=== PATIENT | female | born 1975 | race Two or more races ===

== ENCOUNTER 2016-07-21 16:09 | Emergency (ER) | payer OTHER ==
[~2016-07-21] VITALS: Ht 170.2 cm; Wt 117.9 kg
[2016-07-21 16:20] VITALS: BP 161/97
[2016-07-21 16:47] LABS: APPEARANCE,URINE CLEAR; KETONES,URINE NEGATIVE (NEGATIVE); LEUKOCYTE ESTERASE ,URINE 1+ (NEGATIVE); NITRITE,URINE NEGATIVE (NEGATIVE); PH,URINE 6.5 (4.5-8.0); PROTEIN,URINE NEGATIVE (NEGATIVE); UROBILINOGEN,URINE NORMAL MG/DL (0.0-1.0)
[2016-07-21 16:59] LABS: RBC,URINE 0-2 /HPF (0 - 2); SQUAMOUS EPITHELIAL CELL,UR FEW /LPF (NONE/OCC)
[2016-07-21 17:15] LABS: BASOPHILS % (AUTO) 1.5 % (0.0-2.0); LYMPHOCYTES % (AUTO) 24.4 % (20.0-45.0); MEAN CORPUSCULAR HGB CONC 33.5 G/DL (32.0-36.0); MEAN CORPUSCULAR VOLUME 92 FL (80-99); MEAN PLATELET VOLUME 7.9 FL (6.5-10.1); MONOCYTES % (AUTO) 6.1 % (1.0-10.0); NEUTROPHILS % (AUTO) 67.1 % (45.0-75.0); PLATELET COUNT 313 K/UL (150-450); RED CELL DISTRIBUTION WIDTH 11.5 % (11.6-14.8); WHITE BLOOD COUNT 11.1 K/UL (4.8-10.8)
[2016-07-21 17:38] LABS: ALANINE AMINOTRANSFERASE 18 U/L (3-33); ALBUMIN/GLOBULIN RATIO 1.2 (1.0-2.7); ANION GAP 13 (5-15); ASPARTATE AMINO TRANSFERASE 15 U/L (5-40); CALCIUM 9.1 mg/dL (8.6-10.2); CARBON DIOXIDE 26 mEQ/L (20-30); CHLORIDE 98 mEQ/L (98-107); CREATININE 0.7 mg/dL (0.5-0.9); GLOMERULAR FILTRATION RATE > 60 mL/min (>60); HEMOLYSIS 4; POTASSIUM 3.5 mEQ/L (3.4-4.9); SODIUM 137 mEQ/L (135-145); TOTAL PROTEIN 7.4 g/dL (6.6-8.7)
[2016-07-21] MEDS ORDERED: DEBROX15 M1 LEFT EAR (19:41)
[2016-07-21 20:02] VITALS: BP 114/74
[2016-07-21 20:06] VITALS: BP 114/74
--- NOTE | 2016-07-21 22:16 | Emergency Room Report ---
History of Present Illness General Chief Complaint: Generalized Weakness Source: Medical Record Present Illness HPI The patient is a 41-year-old female who denies medical history presenting for fullness of the left ear along with dizziness which began today. The patient states that she was seated at her desk and felt the symptoms which are intermittent. The pt denies any other symptoms including N, V, F, chills, cough , abd pain, JONES, blurred vision, neck pain/stiffness, SOB, CP Allergies: Coded Allergies: NAPROXEN (Verified Allergy, Intermediate, 07/21/16) cap bleeding Patient History Past Medical History: see triage record Pertinent Family History: none Last Menstrual Period: 07/07/16 Now: No : 3 Para: 3 Reviewed Nursing Documentation: PMH: Agreed, PSxH: Agreed Nursing Documentation-PMH Past Medical History: No Stated History Review of Systems All Other Systems: negative except mentioned in HPI Physical Exam Vital Signs Date Time Temp Pulse Resp B/P Pulse Ox O2 Delivery O2 Flow Rate FiO2 07/21/16 16:15 98.2 73 18 161/97 100 Room Air Sp02 EP Interpretation: reviewed, normal General Appearance: no apparent distress, alert, GCS 15, non-toxic Head: normocephalic, atraumatic Eyes: bilateral eye PERRL, bilateral eye normal inspection ENT: hearing grossly normal, normal pharynx, no angioedema, normal voice, other - L ear cerumen impaction Neck: full range of motion, supple/symm/no masses Respiratory: chest non-tender, lungs clear, normal breath sounds, no wheezing, speaking full sentences Cardiovascular #1: no edema, no gallop, no JVD, no murmur, no rub, bradycardia Cardiovascular #2: 2+ carotid (R), 2+ carotid (L), 2+ radial (R), 2+ radial (L) , 2+ dorsalis pedis (R), 2+ dorsalis pedis (L) Gastrointestinal: normal bowel sounds, non tender, soft, no mass, non-distended , no guarding, no rebound Rectal: deferred Genitourinary: normal inspection, no CVA tenderness Musculoskeletal: back normal, gait/station normal, normal range of motion, non- tender, calf tenderness Neurologic: alert, oriented x3, responsive, motor strength/tone normal, sensory intact, normal gait, speech normal Psychiatric: judgement/insight normal, memory normal, mood/affect normal, no suicidal/homicidal ideation Skin: normal color, no rash, warm/dry, well hydrated Lymphatic: no adenopathy Medical Decision Making PA Attestation Dr. Galicia is my supervising physician. Patient management was discussed with my supervising physician Diagnostic Impression: Primary Impression: Dizziness Additional Impression: Impacted cerumen, left ear ER Course The patient is a 41-year-old female who denies medical history presenting for fullness of the left ear along with dizziness which began today. Differential diagnosis considered: Otitis media, Mnire's disease, labyrinthitis, dehydration, hypoglycemia, anxiety Physical exam: The patient is initially hypertensive but is normotensive at time of discharge. Bradycardic. CN II-XII intact PERRL. EOMI. Normal mentation. RRR. No MRG Lungs CTA bilat HEENT: There is cerumen impaction of the left ear. Unable to visualize TM Abdomen: Normal appearance. Non distended. No ecchymosis. Normal BS. Non TTP. No McBurney point tenderness. No guarding. Skin is warm and dry, no rashes. CBC, CMP, UA all unremarkable The patient is given IV fluids and states that she is feeling better. The patient will be discharged with a prescription for the proximal and will followup with primary care physician for further evaluation. ER precautions given Laboratory Tests Test 07/21/16 16:30 07/21/16 16:50 Urine Color Pale yellow Urine Appearance Clear Urine pH 6.5 (4.5-8.0) Urine Specific [place] 1.010 (1.005-1.035) Urine Protein Negative (NEGATIVE) Urine Glucose (UA) Negative (NEGATIVE) Urine Ketones Negative (NEGATIVE) Urine Occult Blood Negative (NEGATIVE) Urine Nitrite Negative (NEGATIVE) Urine Bilirubin Negative (NEGATIVE) Urine Urobilinogen Normal MG/DL (0.0-1.0) Urine Leukocyte Esterase 1+ (NEGATIVE) H Urine RBC 0-2 /HPF (0 - 2) Urine WBC 2-4 /HPF (0 - 2) Urine Squamous Epithelial Cells Few /LPF (NONE/OCC) Urine Bacteria None /HPF (NONE) Urine HCG, Qualitative Negative White Blood Count 11.1 K/UL (4.8-10.8) H Red Blood Count 4.40 M/UL (4.20-5.40) Hemoglobin 13.6 G/DL (12.0-16.0) Hematocrit 40.7 % (37.0-47.0) Mean Corpuscular Volume 92 FL (80-99) Mean Corpuscular Hemoglobin 31.0 PG (27.0-31.0) Mean Corpuscular Hemoglobin Concent 33.5 G/DL (32.0-36.0) Red Cell Distribution Width 11.5 % (11.6-14.8) L Platelet Count 313 K/UL (150-450) Mean Platelet Volume 7.9 FL (6.5-10.1) Neutrophils (%) (Auto) 67.1 % (45.0-75.0) Lymphocytes (%) (Auto) 24.4 % (20.0-45.0) Monocytes (%) (Auto) 6.1 % (1.0-10.0) Eosinophils (%) (Auto) 1.0 % (0.0-3.0) Basophils (%) (Auto) 1.5 % (0.0-2.0) Sodium Level 137 mEQ/L (135-145) Potassium Level 3.5 mEQ/L (3.4-4.9) Chloride Level 98 mEQ/L (98-107) Carbon Dioxide Level 26 mEQ/L (20-30) Anion Gap 13 (5-15) Blood Urea Nitrogen 9 mg/dL (7-23) Creatinine 0.7 mg/dL (0.5-0.9) Estimate Glomerular Filtration Rate > 60 mL/min (>60) Glucose Level 112 mg/dL (74-106) H Calcium Level 9.1 mg/dL (8.6-10.2) Total Bilirubin 0.2 mg/dL (0.0-1.2) Aspartate Amino Transferase (AST) 15 U/L (5-40) Alanine Aminotransferase (ALT) 18 U/L (3-33) Alkaline Phosphatase 66 U/L (35-104) Total Protein 7.4 g/dL (6.6-8.7) Albumin 4.1 g/dL (3.5-5.2) Globulin 3.3 g/dL Albumin/Globulin Ratio 1.2 (1.0-2.7) Lab Results Impression CBC, CMP, UA all unremarkable EKG Diagnostic Results Rate: bradycardiac - 48 Rhythm: NSR ST Segments: no acute changes PA Scribe Text EKG was reviewed and read with my supervising physician. No acute ST segment changes are seen. Normal rhythm. No acute changes. Last Vital Signs Date Time Temp Pulse Resp B/P Pulse Ox O2 Delivery O2 Flow Rate FiO2 07/21/16 20:06 56 16 114/74 100 Room Air 07/21/16 20:02 98.4 Status: improved Disposition: HOME, SELF-CARE Condition: Improved Scripts Carbamide Peroxide (DEBROX) 15 Ml Drops 10 DROP LEFT EAR TWICE A DAY for 4 Days, ML 0 Refills Prov: IRMA CERDA 07/21/16 Departure Forms: Return to Work Return to Work Date: Jul 24, 2016 Patient Instructions: Cerumen Impaction, Dizziness Additional Instructions: I discussed my findings with the patient. All questions and concerns have been answered. Treatment and medication compliance have been addressed. I advised the patient that they need to follow up with PMD in 3-5 days. Return to ED if symptoms worsen, new symptoms arise, or if needed for any reason. Patient verbalized understanding of discharge instructions. IRMA CERDA Jul 21, 2016 22:16
--- NOTE | 2016-07-24 19:09 | Cardiology Report ---
APPROVED REPORT EKG Measurement Heart [id number] Sinus bradycardia Otherwise normal ECG
== END 2016-07-21 20:08 | disposition home or self-care (01) ==
LOC: EMR 16:50
DX: R42 Dizziness and giddiness (principal); H61.22 Impacted cerumen, left ear
CPT/HCPCS: 36415; 80053; 81003; 81025; 85025; 93005; 96360